=== PATIENT | female | born 1990 | race Caucasian/White ===

== ENCOUNTER 2017-05-07 10:00 | Emergency (ER) | payer OTHER ==
[2017-05-07 10:23] VITALS: BP 103/64; PULSE 98; TEMP 98.5; BMI 18.6
--- NOTE | 2017-05-07 11:13 | PDOC ---
History of Present Illness - General Chief Complaint: Injury Stated Complaint: LEFT KNEE PAIN Time Seen by Provider: 05/07/17 10:08 - History of Present Illness Initial Comments: 05/07/17 11:07 Chief complaint: Left knee pain History of present illness: Patient fell yesterday, sustained direct blunt trauma to the knee. Pain and swelling since then. Pain most severe with flexion and extension. Ambulating but with pain. No distal numbness or tingling. No pain in the thigh and calf ankle or foot. No other injuries. Past medical history: Bipolar on Lamictal and Prozac, migraines on triptan Social/family history reviewed and noncontributory Physical exam: Alert and oriented well-developed well-nourished no acute distress cheerful and cooperative Afebrile, vital signs normal No visible or palpable trauma to the head neck chest abdomen spine pelvis or other extremities. Left knee: Contusion and ecchymosis is present over the inferior, medial aspect of the patella. It appears well localized. No other deformity. No effusion. MCL , LCL without stress tenderness. Lisa negative. No joint space tenderness to palpation. Distal pulses intact. No distal sensory or motor deficits. There is full range of motion but there is pain with extreme flexion and extension. Impression: Contusion of patella, possible patellar fracture. No sign of ligament injury. Plan: X-ray and further orthopedic management depending on results. Past History - Past Medical History Allergies/Adverse Reactions: Allergies Allergy/AdvReac Type Severity Reaction Status Date / Time No Known Allergies Allergy Verified 05/07/17 10:04 Home Medications: Ambulatory Orders Doxycycline Hyclate 150 mg PO DAILY 05/07/17 Fluoxetine HCl 40 mg PO DAILY 05/07/17 Lamotrigine [Lamictal] 25 mg PO DAILY 05/07/17 Niacinamide 250 mg PO DAILY 05/07/17 Zolmitriptan [Zomig] 5 mg PO DAILY 05/07/17 COPD: No Psychiatric Problems: Yes (BIPOLAR D/O) Other medical history: HARD OF HEARING, MIGRAINE HEADACHES - Suicide/Smoking/Psychosocial Hx Smoking History: Never smoked Have you smoked in the past 12 months: No Information on smoking cessation initiated: No Hx Alcohol Use: No Drug/Substance Use Hx: No *Physical Exam - Vital Signs Last Vital Signs Temp Pulse Resp BP Pulse Ox 98.5 F 98 H 18 103/64 96 12/22/17 10:00 05/07/17 10:00 05/07/17 10:00 05/07/17 10:00 05/07/17 10:00 Medical Decision Making - Medical Decision Making 05/07/17 12:28 X-ray shows a comminuted, nondisplaced fracture of the patella. It is located in the center of the patella, probably not involving the tendons. Knee immobilizer was placed over an Be wrap. The patient was more comfortable and ambulating adequately. Crutches and nonweightbearing recommended until further orthopedic consultation. After application, there was no distal numbness or tingling, good motion of the ankle and feet, in no pain distal. Motrin was recommended for pain and swelling. The patient's father has an geological specialist with whom he will follow up. Copies of the x-rays are given. Again, nonweightbearing was recommended until further orthopedic consultation. *DC/Admit/Observation/Transfer Diagnosis at time of Disposition: Fracture of patella Qualifiers: Encounter type: initial encounter Fracture type: closed Fracture morphology: comminuted Fracture alignment: nondisplaced Laterality: left Qualified Code(s): S82.045A - Nondisplaced comminuted fracture of left patella, initial encounter for closed fracture - Discharge Dispostion Disposition: HOME Condition at time of disposition: Improved Admit: No - Referrals Referrals: Bert Mims MD [Staff Physician] - 1 week - Patient Instructions Printed Discharge Instructions: DI for Patella Fracture Additional Instructions: Rest, elevate, Advil, Motrin, or Aleve for pain and swelling. Use knee immobilizer as directed until further orthopedic consultation is obtained. Use crutches as directed and avoid weightbearing until further orthopedic evaluation and recommendations. See your orthopedist within 1 week. - Post Discharge Activity
[2017-05-07] MEDS ORDERED: IBUPROFEN 600 MG TABLET (FP) PO ONE ×2 (11:35→11:36)
== END 2017-05-07 12:40 | disposition home or self-care (01) ==
LOC: FER 10:00
PROC: 2W3RX1Z Immobilization of Left Lower Leg using Splint (ICD-10-PCS; principal; 2017-05-07)
DX: S82.045A Nondisplaced comminuted fracture of left patella, initial encounter for closed fracture (principal); W18.39XA Other fall on same level, initial encounter; Y93.89 Activity, other specified; Y92.9 Unspecified place or not applicable; F31.9 Bipolar disorder, unspecified
CPT/HCPCS: 73562-TC-LT; 84703; 99282-25